=== PATIENT | female | born 1975 | race Two or more races ===

== ENCOUNTER 2022-01-14 11:00 | Outpatient (CLI) | payer OTHER | END 2022-01-14 23:59 | disposition home or self-care (01) | LOC: LAB 11:00 | PROVIDERS: ATTEND Specialist | DX: Z01.812 Encounter for preprocedural laboratory examination (principal); Z20.822 Contact with and (suspected) exposure to COVID-19 | CPT/HCPCS: U0003; C9803 ==

== ENCOUNTER 2022-01-20 05:15 | Day surgery (SDC) | payer OTHER ==
[2022-01-20] MEDS ORDERED: FENTANYL PF 250MCG/5ML AMPUL ONE (06:31)
[2022-01-20] MEDS ORDERED: MIDAZOLAM HCL 2 MG/2ML VIAL ONE (06:32)
[2022-01-20] MEDS ORDERED: HYDROMORPHONE INJ 2 MG/ML DISP.SYRIN ONE (06:32)
[2022-01-20] MEDS ORDERED: FAMOTIDINE/PF INJ 20 MG/2 ML VIAL IV ONE (06:33)
[2022-01-20] MEDS ORDERED: ROCURONIUM BROMIDE 50 MG/5 ML ONE (06:33)
[2022-01-20] MEDS ORDERED: EPINEPHRINE (1:1000) 1 MG/ML AMPUL ONE ×2 (06:48→06:49)
[2022-01-20] MEDS ORDERED: BUPIVACAINE 0.5 % PF 150 MG/30 ML VIAL ONE (06:48)
--- NOTE | 2022-01-20 07:35 | NUR ---
ms rn patient is oput at the room, down in or for left shoulder surgery.
--- NOTE | 2022-01-20 08:35 | NUR ---
ms rn received patient from or, patient is still sleepy, oriented x3,not in nay form of distress, v/s wnl, on o2 mask,if at right arm,will monitor patient.
[2022-01-20 09:00] VITALS: BP 122/69
[2022-01-20 09:15] VITALS: BP 132/70
[2022-01-20 09:30] VITALS: BP 140/69
[2022-01-20 10:00] VITALS: BP 133/65
--- NOTE | 2022-01-20 10:00 | NUR ---
ms rn patient is now awake,alert, will be going home soon, waiting for her to pick her up.
[2022-01-20 10:30] VITALS: BP 136/71
[2022-01-20] MEDS ORDERED: ONDANSETRON HCL/PF 4 MG/2 ML VIAL IV PRN (12:00)
--- NOTE | 2022-01-20 15:00 | NUR ---
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 corcoran in one week. all needs attended.
[2022-01-20] MEDS ORDERED: ANESTHESIA TRAY IN PYXIS 1 EA TRAY MC ONE (15:26)
== END 2022-01-20 18:00 | disposition home or self-care (01) ==
LOC: DS 05:15 → UNDOADMIN 05:16 → MED 05:16 → UNDODISIN 14:50 → DS 18:00
PROVIDERS: ATTEND Specialist
DX: M75.42 Impingement syndrome of left shoulder (principal); Z20.822 Contact with and (suspected) exposure to COVID-19; Z88.1 Allergy status to other antibiotic agents; Z98.890 Other specified postprocedural states; Z79.899 Other long term (current) drug therapy
CPT/HCPCS: 29824; 29826; 23073; 84703; 87081; J0690; J3490 ×5; J1100; J2704; J0171 ×2; J1170; J1885; J2405 ×2; J7030; J2250; A6253; A4217; A4565; J3010; G0378